=== PATIENT | female | born 1930 | race Caucasian/White ===

== ENCOUNTER 2016-09-22 09:45 | Outpatient (CLI) | payer MEDICARE, OTHER ==
[2016-09-22 11:03] LABS: #Eosinphils 0.2 thou/uL (0.0-0.7); #Lymphocytes 1.9 thou/uL (1.20-3.40); #Monocytes 0.4 thou/uL (0.11-0.59); #Neutrophils 2.2 thou/uL (1.40-6.50); %Basophils 0.9 % (0.0-1.0); %Eosinophils 4.7 % (0.0-10.0); %Lymphocytes 39.4 % (21.0-51.0); %Monocytes 7.8 % (0.0-10.0); %Neutrophils 47.2 % (42.0-75.0); Hemoglobin 14.2 g/dL (12.0-16.0); Mean Corpuscular HGB CONC 32.5 g/dL (32.0-36.0); Mean Corpuscular Hemoglobin 31.6 pg (27.0-31.0); Mean Corpuscular Volume 97.2 fl (81.0-99.0); Mean Platelet Volume 9.1 fL (7.4-10.4); Platelet Count 184 thou/uL (130-400); RBC Distribution Width 12.5 % (11.5-14.5); White Blood Cell (WBC) Count 4.7 thou/uL (4.8-10.8)
[2016-09-22 11:35] LABS: ALT (SGPT) 19 U/L (0-55); AST (SGOT) 20 U/L (5-34); Albumin 4.1 g/dL (3.4-4.8); Alkaline Phosphatase 77 U/L (40-150); Anion Gap 14 mmol/L (10-20); BUN (Urea Nitrogen) 19 mg/dL (9.8-20.1); Bilirubin, Total 0.5 mg/dL (0.2-1.2); Calc. Creatinine Clearance 0 mL/min (70-130); Carbon Dioxide 26 mmol/L (23-31); Cardiac Risk 2.3 (Less than 4.5); Chloride 106 mmol/L (98-107); Cholesterol 143 mg/dL (< 200 Desired); Estimated GFR-MDRD 65; Globulin 2.3 g/dL (2.4-3.5); Glucose 100 mg/dL (83-110); HDL Cholesterol 62 mg/dL (>60 Neg Risk); LDL Cholesterol, Calculated 66 mg/dL; Potassium 4.1 mmol/L (3.5-5.1); Protein, Total 6.4 g/dL (5.8-8.1); Sodium 142 mmol/L (136-145); Triglycerides 77 mg/dL (Less than 150)
[2016-09-22 11:37] LABS: Thyroid Stimulating Hormone 0.9864 uIU/mL (0.35-4.94); Vitamin D, 25 Hydroxy 22.3 ng/mL (> 30.0)
== END 2016-09-22 09:46 | disposition home or self-care (01) ==
LOC: HPCALD 09:45
PROVIDERS: ATTEND Family Medicine
DX: E78.5 Hyperlipidemia, unspecified (principal); I10 Essential (primary) hypertension; E55.9 Vitamin D deficiency, unspecified
CPT/HCPCS: 36415; 80053; 80061; 82306; 84443; 85025

== ENCOUNTER → 2017-09-08 | Emergency (ER) | payer MEDICARE, OTHER ==
[~2017-09-08] MED LIST: Adacel (T-DAP) 0.5 ML VIAL ONE; Bacitracin Zinc 1 Packet ONE
--- NOTE | 2017-09-08 16:03 | CT ---
CT CERVICAL SPINE WITHOUT CONTRAST: History: Trauma, fall, facial abrasion. Comparison: None. Technique: Cervical spine CT is performed without contrast. Reformatted images are submitted for inte rpretation. FINDINGS: No prevertebral soft tissue swelling or epidural hematoma. Heterogeneity of the thyroid gland due to solid and possibly cystic masses. Calcifications are noted. Thyroid ultrasound is recommended. There are varying degrees of significant central canal stenosis and foraminal narrowing on the basis of degenerative change. Evaluation is limited by technique. Upper mediastinum and lung apices are unremarkable. On the sagittal reformatted images, there is 3 mm retrolisthesis of C2 upon C3, 2.5 mm anterolisthesi s of C4 upon C5, 1.9 mm retrolisthesis of C6 upon C7 and 4.5 mm anterolisthesis of C7 upon T1. Spondy lolisthesis is presumed to be due to degenerative change. There is evidence of facet hypertrophy. Lac k of complete segmentation at C3-4 is suspected. There is appropriate alignment of the lateral masses of C1 and C2 as well as the intraarticular facet s. Occipital condyles are unremarkable. Cervical spine vertebral body height is maintained. No fracture. IMPRESSION: 1. No fracture. 2. Degenerative changes of the cervical spine as above. 3. Heterogeneous thyroid gland. Nonemergent thyroid ultrasound recommended. POS: [facility]
--- NOTE | 2017-09-08 16:44 | CT ---
NONCONTRAST HEAD CT 09/08/17 HISTORY: Trauma. Fall. Facial abrasion. COMPARISON: None. TECHNIQUE: Noncontrast head CT is performed from skull base to skull vertex. FINDINGS: There is a left frontotemporal scalp hematoma. Calvarium is intact. Adequate aeration of the sinuses and mastoid air cells. No parenchymal hemorrhage. No extra-axial hematoma. No midline shift. Basilar cisterns are patent. Age appropriate atrophy. Cortical martínez-white matter differentiation is preserved. Ventricles and sulci are patent and symmetric. Minimal white matter hyperintensities of the ventricles is noted. There appears to be a left nasal bone fracture. Refer to dedicated face CT report for further details . IMPRESSION: 1. Left periorbital and scalp posttraumatic change. 2. No evidence of an acute intracranial fracture. POS: [facility]
--- NOTE | 2017-09-08 16:48 | CT ---
EXAM: FACE CT WITHOUT CONTRAST 09/08/17 HISTORY: Trauma. Facial abrasion. COMPARISON: None. TECHNIQUE: Face CT is performed in the axial plane. Reformatted images are submitted for interpretation. FINDINGS: There is a left frontotemporal scalp, left periorbital as well as left nasal soft tissue swelling. Bi lateral ocular lenses are appropriately located. Both globes are intact. Retrobulbar fat is preserved . Symmetric attenuation of the optic nerves and ocular rectus muscles. Oral cavity is unremarkable. Midline fatty raphae is preserved. Evaluation is limited by dental amalg am artifact. Coronal reformatted images demonstrate patent bilateral osteomeatal complexes. The osseous margins of the orbits and sinuses are maintained. Pterygoid plates are intact. Maxilla and mandible are unremar kable. There is a left nasal bone fracture. Additional maxillofacial fractures are not appreciated. IMPRESSION: 1. Left facial/periorbital and scalp posttraumatic change. 2. Left nasal bone fracture. POS: [facility]
== END ==
LOC: BURERS 14:56
DX: S02.2XXA Fracture of nasal bones, initial encounter for closed fracture (principal); S05.42XA Penetrating wound of orbit with or without foreign body, left eye, initial encounter; S51.811A Laceration without foreign body of right forearm, initial encounter; S41.012A Laceration without foreign body of left shoulder, initial encounter; S41.011A Laceration without foreign body of right shoulder, initial encounter; S51.012A Laceration without foreign body of left elbow, initial encounter; S51.011A Laceration without foreign body of right elbow, initial encounter; S61.512A Laceration without foreign body of left wrist, initial encounter; S61.511A Laceration without foreign body of right wrist, initial encounter; E78.5 Hyperlipidemia, unspecified; I10 Essential (primary) hypertension; Z79.82 Long term (current) use of aspirin; Z79.899 Other long term (current) drug therapy; W18.30XA Fall on same level, unspecified, initial encounter
CPT/HCPCS: 70450; 70486; 72125; 90471; 90715